=== PATIENT | male | born 1995 | race Caucasian/White ===

== ENCOUNTER 2018-06-29 07:08 | Emergency (ER) | payer OTHER, SELFPAY ==
[2018-06-29 07:54] LABS: #Basophils 0.1 thou/uL (0.0-0.2); #Eosinphils 0.2 thou/uL (0.0-0.7); #Lymphocytes 2.3 thou/uL (1.20-3.40); #Monocytes 0.6 thou/uL (0.11-0.59); #Neutrophils 6.1 thou/uL (1.40-6.50); %Eosinophils 2.6 % (0.0-10.0); %Lymphocytes 24.6 % (21.0-51.0); %Monocytes 6.7 % (0.0-10.0); %Neutrophils 65.1 % (42.0-75.0); Hemoglobin 15.4 g/dL (14.0-18.0); Mean Corpuscular HGB CONC 33.7 g/dL (32.0-36.0); Mean Platelet Volume 9.1 fL (7.4-10.4); PTT 23.5 SEC (22.9-36.1); Platelet Count 228 thou/uL (130-400); Prothrombin Time 13.5 SEC (12.0-14.7); RBC Distribution Width 11.7 % (11.5-14.5); Red Blood Cell (RBC) Count 4.95 mill/uL (4.70-6.10); White Blood Cell (WBC) Count 9.3 thou/uL (4.8-10.8)
[2018-06-29 08:07] LABS: ALT (SGPT) 81 U/L (8-55); AST (SGOT) 78 U/L (5-34); Albumin 4.5 g/dL (3.5-5.0); Alcohol Less than 10 mg/dL (Less than 10); Alkaline Phosphatase 44 U/L (40-150); Anion Gap 10 mmol/L (10-20); BUN (Urea Nitrogen) 13 mg/dL (8.9-20.6); Bilirubin, Total 0.5 mg/dL (0.2-1.2); Calc. Creatinine Clearance 0 mL/min (70-130); Calcium 9.5 mg/dL (7.8-10.44); Carbon Dioxide 29 mmol/L (22-29); Chloride 104 mmol/L (98-107); Estimated GFR-MDRD 74; Globulin 2.3 g/dL (2.4-3.5); Glucose 116 mg/dL (70-105); Lipase 19 U/L (8-78); Potassium 3.2 mmol/L (3.5-5.1); Protein, Total 6.8 g/dL (6.0-8.3); Sodium 140 mmol/L (136-145)
[2018-06-29] MEDS ORDERED: Morphine 4 MG/ML VIAL ONE (08:36)
--- NOTE | 2018-06-29 09:44 | RAD ---
FRONTAL VIEW CHEST: INDICATION: Posttraumatic pain. FINDINGS: There is no evidence of acute consolidation, effusion, or discrete pneumothorax. Cardiac silhouette is normal in size. Osseous structures are intact where visualized. IMPRESSION: No focal consolidation. POS: [facility]
--- NOTE | 2018-06-29 09:46 | CT ---
HEAD CT NONCONTRAST: INDICATION: Posttraumatic pain. COMPARISON: Reference is made to 06/21/2003. FINDINGS: There is no ventriculomegaly, mass effect, midline shift, or acute intracranial hemorrhage. Scattere d paranasal sinus mucosal thickening is present. Calvarium is intact. No pneumocephalus. IMPRESSION: No acute intracranial hemorrhage or mass effect. POS: [facility]
--- NOTE | 2018-06-29 09:47 | CT ---
CERVICAL SPINE CT NONCONTRAST: INDICATION: Posttraumatic neck pain, injury. FINDINGS: Craniocervical junction is intact. There is no evidence of compression fracture or subluxation. No retropulsion of bone. IMPRESSION: No acute osseous abnormality of the cervical spine. Notification of findings placed at 0740 hours 06/29/2018. CODE CR POS: JESS[facility]
--- NOTE | 2018-06-29 09:56 | CT ---
CT OF CHEST AND ABDOMEN AND PELVIS WITH CONTRAST CT THORACIC SPINE WITH CONTRAST AND REFORMATTED IMAGING CT LUMBAR SPINE WITH CONTRAST AND REFORMATTED IMAGING THREE D VOLUME RENDERING PERFORMED: FINDINGS: The pulmonary parenchyma is clear. No effusion or pneumothorax. Evaluation of the solid abdominal v iscera reveals no acute posttraumatic sequelae. No hemoperitoneum or retroperitoneal hematoma. Thor acoabdominal aorta is intact. Bowel is incompletely characterized without the presence of enteric co ntrast. Imaging of thoracolumbar spine reveals no compression fracture or significant subluxation. Sternum reveals no evidence of a displaced fracture. No displaced rib fracture evident. IMPRESSION: No definite acute posttraumatic sequelae is visualized. Telephone call with findings placed to the ER physician, Dr. Nelson, at 0748 hours 06/29/2018. CODE CR POS: JESSICA
[2018-06-29] MEDS ORDERED: ISOVUE-370 76%-LOCM 1 ML ONE (11:21)
== END 2018-06-29 09:40 | disposition home or self-care (01) ==
LOC: ERS 07:08
DX: S16.1XXA Strain of muscle, fascia and tendon at neck level, initial encounter (principal); S20.211A Contusion of right front wall of thorax, initial encounter; J45.909 Unspecified asthma, uncomplicated; F17.210 Nicotine dependence, cigarettes, uncomplicated; Z79.82 Long term (current) use of aspirin; V29.9XXA Motorcycle rider (driver) (passenger) injured in unspecified traffic accident, initial encounter
CPT/HCPCS: 70450; 71045; 71260; 72125; 74177; 80053; 80307; 83690; 85025; 85610; 85730; 96374; J2270; Q9966

== ENCOUNTER 2019-05-19 13:40 | Outpatient (CLI) | payer BC ==
--- NOTE | 2019-05-19 14:08 | RAD ---
XR Lumbar Spine 2 Or 3 View History: Low back pain Comparison: None. Findings: 5 nonrib-bearing lumbar type vertebrae. No acute fracture or malalignment. No listhesis. Facet joints are normal. Paraspinal soft tissues are unremarkable. Impression: Normal examination of the lumbar spine.
== END 2019-05-19 13:41 | disposition home or self-care (01) ==
LOC: SCSRAD 13:40
PROVIDERS: ATTEND Internal Medicine Rheumatology
DX: M54.5 Low back pain (principal)
CPT/HCPCS: 72100

== ENCOUNTER 2019-11-12 23:17 | Emergency (ER) | payer BC, SELFPAY | END 2019-11-13 00:33 | disposition home or self-care (01) | LOC: ERS 23:17 | DX: G62.9 Polyneuropathy, unspecified (principal); J45.909 Unspecified asthma, uncomplicated; I10 Essential (primary) hypertension; F17.210 Nicotine dependence, cigarettes, uncomplicated | CPT/HCPCS: 99283 ==